=== PATIENT | male | born 1955 | race Caucasian/White ===

== ENCOUNTER 2021-03-28 09:50 | Outpatient (CLI) | payer OTHER ==
--- NOTE | 2021-03-28 11:14 | SLEEP CARE CONSULTATION ---
Information from patient questionnaire entered by Real Waite MA. I have reviewed and concur with the information entered by Real Waite MA. This document represents the service I personally performed and the decisions made by , Rosalia Candelario ARNP. History of Present Illness Service Date and Time: 03/28/2021 0950 Reason for Visit: New patient, Previously diagnosed sleep apnea, sleep apnea on CPAP therapy Chief Complaint: reports: Insomnia, Unrefreshed sleep, Snoring, Excessive daytime sleepiness, Observed pauses in breathing, Fatigue, Frequent awakenings at night, Other Date of Onset: 2010 diagnosis Usual bedtime: 800 PM Time it takes to fall asleep: 15 - 20 MINUTES Snores at night: Yes Observed to quit breathing while asleep: Yes Number of times waking at night: 2-3 Reasons for waking at night: reports: Gasping for air (recently started), Bathroom Toss, Turn, or Twitch while sleeping: Yes Recalls having dreams: Yes Usually gets out of bed at: 0430 Feels refreshed in the morning: No Morning headache: No Sleepy or fatigued during the day: Yes Ever fallen asleep while driving: No Takes day naps: Yes (1-2 times a week, not long in recliner) Dreams during day naps: No Prior sleep studies: Yes Additional HPI information: RITU MARTINEZ was previously diagnosed to have severe, AHI 30, obstructive sleep apnea-hypopnea syndrome and comes in today to establish care for CPAP therapy. - Parasomnia Symptoms Ever been unable to move upon waking from sleep: No Walks in sleep: No Talks in sleep: No Ever acted out dreams in sleep: No Ever felt weak in the knees when startled or emotional: No Bothered by creepy, crawly, restless sensations in legs: No Problems with memory or concentration: Yes (concentration mainly) CPAP Compliance Data - Data Reviewed with Patient Average duration of nightly device use: 5 hours 4 minutes Compliance rate %: 4 Current pressure setting (cmH2O): 8-10 Average residual AHI: 10.8 Central apnea: 4.3 Obstructive apnea: 5.2 Average large leak: 18.5 L/min Compliance data discussion: Diagnosed in 2010 and started on CPAP. He had difficulty adjusting to the pressure due to sinus history of surgery for polyps and nasal congestion. He also had some oral dryness because of mouth breathing so he uses a full face mask. He has not been getting supplies. All of his supplies are from years ago. He has not been consistently using his CPAP over the last 8 years. He restarted using it after waking up gasping for air about 3 weeks ago. Subjective Patient concerns: reports: mask discomfort (pain on bridge of nose and chin, unsure if mask fitting right), mask leak noise (until he gets good fit/seal on mask), nasal congestion (just a little in sinuses, normal), dry mouth, nose, throat. denies: aerophagia, air blowing in eyes, condensation in mask/hose, epistaxis, other Observed to snore while using device: No (unknown) Current pressure setting perceived as: comfortable On therapy, patient: reports: sleeping better, more rested overall. denies: drowsiness while driving Initial [place] Sleepiness Scale score: 5 (2021) Past Medical History Past Medical History: reports: Coronary Heart Disease (MVP repair 2008, annual visit with cardiology; AV block), Other (nasal polyps, removed 2 times; slight deviated nasal septum) Social History The patient's occupation is a RE. Patient is and lives in [place]. Have you smoked in the past 12 months: Yes Cigarettes per day (20/pack): 50 Quit date: 1977 Alcohol use: No Caffeine use: Yes Caffeine amount and frequency: 1 X DAILY Family History Family history of sleep disordered breathing: No Allergies and Home Medications Drug allergies reviewed: Yes (NKDA) Home medication list reviewed: Yes Allergy and home medication list: Claritin 10 mg daily Lipitor 10 mg daily Aspirin 81 mg daily Review of Systems Weight gain over past 5 years: 5 Urinary: reports: urgency Ear/Nose/Throat: reports: nasal congestion, sinus problems, dry mouth/throat, wisdom teeth removed. denies: tonsillectomy Endocrine: reports: sluggishness, too hot or cold, excessive thirst, increased urination Musculoskeletal: reports: neck pain Physical Exam Vital signs obtained and entered by: GEM MONSON Blood Pressure: 144/90 (RIGHT) Cuff size: wrist Heart Rate: 82 O2 Saturation: 97 (PAPER MASK) Height: 5 ft 10 in Weight: 195 lb (CLOTHES AND SHOES) Body Mass Index: 27.9 BMI Classification: Overweight Heart: regular rate and rhythm Lungs: clear bilaterally Impression and Plan 1. Obstructive Sleep Apnea-Hypopnea Syndrome, severe, with poor treatment compliance and fair apnea control with elevated residual AHI. On CPAP therapy, the patient states that he has better sleep quality and is more rested overall. He has not been using the CPAP consistently because he gets sinus soreness from the air pressure. He started waking up gasping recently and decided to restart using his CPAP. He has old supplies that he made work with his ResMed CPAP device. He adjusted the pressure down because it was feeling too high and uncomfortable on his sinuses. He likes the current pressure setting. I was able to see his last PSG with 30 AHI that was done in 2010. But, because he has not been consistently using his CPAP and seems to have had a worsening of symptoms with the nocturnal gasping I will order a verifying diagnostic PSG to get an updated baseline. He requests a sleep aide and I will write for a 5 mg Zolpiem for the night of sleep study. Patient would also like to continue trying to use his CPAP until the study but needs updated supplies. He would also like a mask fitting to get the right fit on his new mask. I will order an update on supplies and mask refitting for him. Follow up will be after the PSG is completed. Patient's apnea severity and rationale for treatment to reduce apnea, improve sleep quality and reduce cardiovascular and cerebrovascular events was reviewed. I also reviewed the benefit of consistent device use of CPAP for cardiac disease. Patient was encouraged to lose weight for their overall health and to reduce apneas. * Continue auto CPAP pressure at 8-10 cmH2O * Polysomnography/HST to verify diagnosis * Transfer DME * Update supplies * Mask refitting * Notify me if snoring with mask or feeling that the pressure is too much or too little * Attempt to lose weight * Call this office if any problems using CPAP * Return for follow up after sleep study completed, or sooner if concerns arise Counseling Topics: Spare mask, Weight loss health impact Visit Type: In Office Time Spent with Patient (minutes): 58 Provider Statement: I spent 100% of the Face to Face Visit with the patient with greater than 50% spent counseling the patient and coordination of care.
[2021-03-28 11:15] VITALS: BP 144/90
== END 2021-03-28 09:51 | disposition home or self-care (01) ==
LOC: SC 09:50
PROVIDERS: ATTEND Nurse Practitioner Family
DX: G47.33 Obstructive sleep apnea (adult) (pediatric) (principal)
CPT/HCPCS: 99204; 99212

== ENCOUNTER 2021-06-05 19:40 | Outpatient (CLI) | payer OTHER | END 2021-06-05 19:41 | disposition home or self-care (01) | LOC: SC 19:40 | PROVIDERS: ATTEND Nurse Practitioner Family | DX: G47.33 Obstructive sleep apnea (adult) (pediatric) (principal); I25.10 Atherosclerotic heart disease of native coronary artery without angina pectoris | CPT/HCPCS: 95810 ==

== ENCOUNTER 2021-06-20 08:45 | Outpatient (CLI) | payer OTHER ==
[2021-06-20 09:38] VITALS: BP 143/91
--- NOTE | 2021-06-20 09:38 | SLEEP CARE CONSULTATION ---
Information from patient questionnaire entered by Real Waite MA. I have reviewed and concur with the information entered by Real Waite MA. This document represents the service I personally performed and the decisions made by , Rosalia Candelario ARNP. History of Present Illness Service Date and Time: 06/20/2021 0845 Initial [place] Sleepiness Scale score: 5 (2021) Current [place] Sleepiness Scale score: 4 Additional HPI information: RITU MARTINEZ returns for follow up and results of the recently performed polysomnography. I explained the pathophysiology behind obstructive sleep apnea. We then spent quite a bit of time discussing different treatment options. For mild obstructive sleep apnea, surgery and oral appliance are alternatives to nasal CPAP therapy but in moderate or severe cases, nasal CPAP is the most effective and reliable treatment. Patient currently has a CPAP set at 9-10 cmH2O that he restarted use of recently due to waking up gasping for air. We had to reverify his diagnosis and severity with the PSG which we did with an average AHI of 23.0 and mariah oxygen saturation of 82%. Patient counseled not drink alcohol less than 4 hours before bedtime as it can increase snoring and apnea. Patient was cautioned about risks of drowsy driving until sleepiness symptoms resolve. Patient brought in his memory chip which shows his compliance at 95% in last 60 days with using his CPAP on average of 7 hours 57 minutes. His residual AHI is 3.4. He is using a ResMed F20 AirFit. He has been noting a "popping noise" when on his back. Sleep Study - Results Type of Sleep Study: Polysomnography (F/U POLY, 06/05/21 [facility]) Prior sleep studies: Yes Polysomnography/Home Sleep Study results: IMPRESSION: The quality of the study is good. The patient had reduced sleep efficiency due to sleep onset insomnia and several prolonged awakenings during the night. The sleep architecture was abnormal for sleep fragmentation and reduced amount of time spent in slow wave sleep (N3). Respiratory monitoring showed moderate obstructive sleep apnea-hypopnea (AHI = 23.0) associated with frequent arousals, oxyhemoglobin desaturation and mild hypoxia (mariah oxygen saturation of 82%). The respiratory events occurred mainly during supine sleep (supine AHI = 51.9; non-supine = 16.99). Snore was moderate in intensity. There was no significant periodic leg movement of sleep. Cardiac rhythm was normal sinus rhythm without significant arrhythmia. No abnormal behavior (parasomnia) observed during the night. Allergies and Home Medications Home medication list reviewed: Yes (no changes) Review of Systems Review of systems same as previous: Yes (no changes) Physical Exam Vital signs obtained and entered by: GEM MONSON Blood Pressure: 143/91 (RIGHT, PULSE 76, RESP 18, ) Cuff size: wrist Heart Rate: 76 O2 Saturation: 96 (PAPER) Height: 5 ft 10 in Weight: 190 lb (WO CLOTHES) Body Mass Index: 27.2 BMI Classification: Overweight Impression and Plan 1. Obstructive Sleep Apnea-Hypopnea Syndrome, moderate, with lowest oxygen saturation of 82%. Obviously this is the cause of the patients symptoms of unrefreshed sleep, and excessive daytime sleepiness. Positive pressure therapy could benefit cardiac disease. As mentioned above, the patient will continue on nasal autoCPAP therapy with pressure set at 9-10 cmH2O. Compliance guidelines also reviewed. Patient is 95% compliant with his CPAP use as listed above. He states in the last month he has noted an increase in bloating in the morning. He is burping up air for about 20 minutes in the morning. He does not want to change the pressure because he feels it might be due to the mask change about 1 month ago. He will get a smaller size mask and see if this will resolve the issue. He is doing well otherwise and brought his compliance up. I will follow up with him in 1 year or sooner if concerns arise. He was advised to maintain a healthy weight. * Continue auto CPAP pressure at 9-10 cmH2O * Notify me if snoring with mask or feeling that the pressure is too much or too little * Maintain a healthy weight * Call this office if any problems using CPAP * Return for follow up in 1 year, or sooner if concerns arise Counseling Topics: Weight control Visit Type: In Office Time Spent with Patient (minutes): 27 Provider Statement: I spent 100% of the Face to Face Visit with the patient with greater than 50% spent counseling the patient and coordination of care.
== END 2021-06-20 08:46 | disposition home or self-care (01) ==
LOC: SC 08:45
PROVIDERS: ATTEND Nurse Practitioner Family
DX: G47.33 Obstructive sleep apnea (adult) (pediatric) (principal); E66.3 Overweight; Z68.27 Body mass index [BMI] 27.0-27.9, adult
CPT/HCPCS: 99212; 99213

== ENCOUNTER 2022-07-03 08:27 | Outpatient (CLI) | payer OTHER ==
--- NOTE | 2022-07-03 09:09 | SLEEP CARE CONSULTATION ---
Information from patient questionnaire entered by Kimberly Moran. I have reviewed and concur with the information entered by Kimberly Moran. This document represents the service I personally performed and the decisions made by me, Rosalia Candelario ARNP. History of Present Illness Service Date and Time: 07/03/2022826 Previous diagnosis: Moderate, Obstructive Sleep Apnea-Hypopnea Syndrome AHI: 23.0 (in 2021) Reason for follow up: annual (LAST SEEN 05/2021) Equipment type: CPAP (RESMED S9, harley 2010; SD CARD NEEDED FOR DOWNLOAD AND PRESSURE CHANGES) Equipment obtained from: Other ([employer], getting supplies) Mask style: Full face Mask brand: Resmed (AirFit F20) Backup mask available: Yes (old mask) Last cushion change: 3 months Prior sleep studies: Yes Type of Sleep Study: Polysomnography (F/U POLY, 06/05/21 [facility]) HPI additional information: RITU MARTINEZ was diagnosed to have moderate, AHI 23, obstructive sleep apnea- hypopnea syndrome and returned today for CPAP therapy annual follow-up. Sleep Study - Results Type of Sleep Study: Polysomnography (F/U POLY, 06/05/21 [facility]) Prior sleep studies: Yes CPAP Compliance Data - Data Reviewed with Patient Average duration of nightly device use: 4 hours 55 minutes Compliance rate %: 46 (123/180 days used) Current pressure setting (cmH2O): 7-10 Average residual AHI: 1.2 Central apnea: 0.6 Obstructive apnea: 0.3 Average large leak: 0.5 lpm Subjective Missed days of use due to: reports: other ( ) Patient concerns: reports: aerophagia (mild, tolerable per pt), dry mouth, nose, throat (occasional), other (coughing from recent cold/ allergies). denies: mask discomfort, air blowing in eyes, mask leak noise, condensation in mask/hose, nasal congestion, epistaxis Observed to snore while using device: No Current pressure setting perceived as: comfortable On therapy, patient: reports: sleeping better, awakening more refreshed, being more awake and alert during the day, more rested overall. denies: drowsiness while driving Initial [place] Sleepiness Scale score: 5 (2021) Current [place] Sleepiness Scale score: 5 (07/03/22) Allergies and Home Medications Known drug allergies: No Drug allergies reviewed: Yes Home medication list reviewed: Yes (no changes) Review of Systems Review of systems same as previous: Yes (no changes) Physical Exam Vital signs obtained and entered by: KIMBERLY Juarez MA Blood Pressure: 126/78 (LEFT ARM) Cuff size: regular Heart Rate: 87 O2 Saturation: 98 Height: 5 ft 10 in Weight: 194 lb 3.2 oz Body Mass Index: 27.8 BMI Classification: Overweight Impression and Plan 1. Obstructive Sleep Apnea-Hypopnea Syndrome, moderate, with fair treatment compliance and good apnea control. On CPAP therapy, the patient has better sleep quality and is more rested overall. Patient was diagnosed head and neck cancer and in January. This has affected his CPAP use in the past. He also has had a recent cold which has produced a bad cough that makes it difficult to wear his mask. He is trying to use it every night. Patient has a ResMed S9 machine that he got in 2010. I explained to him that he is eligible for a new machine but he does not want to pursue that at this time. Patient's apnea severity and rationale for treatment to reduce apnea, improve sleep quality and reduce cardiovascular and cerebrovascular events was reviewed. I also reviewed the benefit of consistent device use of CPAP for cardiac disease. 2. Overweight, unspecified. Currently patients BMI is 27.8. Obesity increases the risk of apnea, CPAP pressure requirements and overall health risks especially cardiovascular and diabetes. Thus patient is advised to lose weight. * Continue auto CPAP pressure at 9-10 cmH2O * Update supplies * Notify me if snoring with mask or feeling that the pressure is too much or too little * Try to lose weight * Call this office if any problems using CPAP * Return for follow up in 1 year, or sooner if concerns arise Counseling Topics: Spare mask, Weight loss health impact Visit Type: In Office Time Spent with Patient (minutes): 21 Provider Statement: I spent 100% of the Face to Face Visit with the patient with greater than 50% spent counseling the patient and coordination of care.
[2022-07-03 09:12] VITALS: BP 126/78
== END 2022-07-03 08:28 | disposition home or self-care (01) ==
LOC: SC 08:27
PROVIDERS: ATTEND Nurse Practitioner Family
DX: G47.33 Obstructive sleep apnea (adult) (pediatric) (principal); E66.3 Overweight; Z68.27 Body mass index [BMI] 27.0-27.9, adult
CPT/HCPCS: 99212; 99213

== ENCOUNTER 2023-02-05 11:03 | Outpatient (CLI) | payer MEDICARE, OTHER ==
--- NOTE | 2023-02-05 11:26 | Sleep Patient Instructions ---
Sleep Center Visit Summary - Patient Visit Information Reason for Visit: 8 month follow up - Patient Instructions Additional Instructions: You were here for follow up of CPAP therapy. You will be continued on CPAP therapy with pressure at 7-10 cmH2O. You should follow up with sleep care in 12 months. You may contact us sooner for any questions or concerns. - Clinic Information Contact: [facility] [address] [place] [address] [email or web address] T: [phone]
--- NOTE | 2023-02-05 11:30 | SLEEP CARE CONSULTATION ---
Information from patient questionnaire entered by Gi Moran. I have reviewed and concur with the information entered by Gi Moran. This document represents the service I personally performed and the decisions made by me, Rosalia Candelario ARNP. History of Present Illness Service Date and Time: 02/05/2023 1103 Previous diagnosis: Moderate, Obstructive Sleep Apnea-Hypopnea Syndrome AHI: 23.0 (in 2021) Reason for follow up: other (8 MONTH F/U) Equipment type: CPAP (RESMED Airsense 11) Equipment obtained from: Other ([employer], getting supplies) Mask style: Full face Mask brand: Resmed (Airfit F20) Backup mask available: Yes Last cushion change: 3 weeks Prior sleep studies: Yes Type of Sleep Study: Polysomnography (F/U POLY, 06/05/21 [facility]) HPI additional information: RITU MARTINEZ was diagnosed to have moderate, AHI 23, obstructive sleep apnea- hypopnea syndrome and returned today for CPAP therapy eight month follow-up with insurance change to Medicare. Sleep Study - Results Type of Sleep Study: Polysomnography (F/U POLY, 06/05/21 [facility]) Prior sleep studies: Yes CPAP Compliance Data - Data Reviewed with Patient Average duration of nightly device use: 6 hours 51 minutes Compliance rate %: 93 (90/90 days used; 100% for initial compliance period) Current pressure setting (cmH2O): 7-10 Average residual AHI: 1.4 Central apnea: 0.4 Obstructive apnea: 0 Hypopnea: 0.9 Average large leak: 0.1 L/min Subjective Missed days of use due to: reports: other (new puppy) Patient concerns: reports: aerophagia (occasional gaseous in morning), air blowing in eyes (little bit a bridge of nose), dry mouth, nose, throat (some). denies: mask discomfort, mask leak noise, condensation in mask/hose, nasal congestion, epistaxis Observed to snore while using device: No Current pressure setting perceived as: comfortable On therapy, patient: reports: sleeping better, awakening more refreshed, being more awake and alert during the day, more rested overall. denies: drowsiness while driving Initial [place] Sleepiness Scale score: 5 (2021) Current [place] Sleepiness Scale score: 4 Allergies and Home Medications Known drug allergies: No Drug allergies reviewed: Yes Home medication list reviewed: Yes (no changes) Review of Systems Review of systems same as previous: Yes (no changes) Physical Exam Vital signs obtained and entered by: ROSALIA JENKINS Blood Pressure: 127/81 Cuff size: wrist (right) Heart Rate: 76 O2 Saturation: 97 Height: 5 ft 10 in Weight: 203 lb 3.2 oz Body Mass Index: 29.1 BMI Classification: Overweight Impression and Plan 1. Obstructive Sleep Apnea-Hypopnea Syndrome, moderate, with good treatment compliance and good apnea control. On CPAP therapy, the patient has better sleep quality and is more rested overall. Patient has significant improvement of their sleep apnea and is satisfied with current CPAP therapy. Patient's apnea severity and rationale for treatment to reduce apnea, improve sleep quality and reduce cardiovascular and cerebrovascular events was reviewed. I also reviewed the benefit of consistent device use of CPAP for cardiac disease. 2. Overweight, unspecified. Currently patients BMI is 29.1. Obesity increases the risk of apnea, CPAP pressure requirements and overall health risks especially cardiovascular and diabetes. Thus patient is advised to lose weight. * Continue auto CPAP pressure at 7-10 cmH2O * Notify me if snoring with mask or feeling that the pressure is too much or too little * Attempt to lose weight * Call this office if any problems using CPAP * Return for follow up in 1 year, or sooner if concerns arise Counseling Topics: Spare mask, Weight loss health impact Follow up with Sleep Care in: 1 year Visit Type: In Office Time Spent with Patient (minutes): 20 Provider Statement: I spent 100% of the Face to Face Visit with the patient with greater than 50% spent counseling the patient and coordination of care.
[2023-02-05 11:32] VITALS: BP 127/81; O2SAT 97
== END 2023-02-05 11:04 | disposition home or self-care (01) ==
LOC: SC 11:03
PROVIDERS: ATTEND Nurse Practitioner Family
DX: G47.33 Obstructive sleep apnea (adult) (pediatric) (principal); E66.3 Overweight; Z68.29 Body mass index [BMI] 29.0-29.9, adult
CPT/HCPCS: 99213; G0463; 99212

== ENCOUNTER 2023-03-12 07:42 | Outpatient (CLI) | payer MEDICARE, OTHER ==
[2023-03-12 12:38] LABS: CHOLESTEROL 175 mg/dL; HDL CHOLESTEROL 35 mg/dL; LDL CHOLESTEROL,CALCULATED 113 mg/dL; LDL/HDL RATIO 3.2 (<3.6); TRIGLYCERIDES 137 mg/dL (48-352); VLDL CHOLESTEROL 27 mg/dL
== END 2023-03-12 07:43 | disposition home or self-care (01) ==
LOC: LAB.N 07:42
PROVIDERS: ATTEND Internal Medicine Cardiovascular Disease
DX: E78.5 Hyperlipidemia, unspecified (principal)
CPT/HCPCS: 36415; 80061; 83721